=== PATIENT | female | born 1975 | race Caucasian/White ===

== ENCOUNTER → 2017-06-02 | Outpatient (CLI) | payer OTHER ==
--- NOTE | 2017-06-02 18:37 | MR ---
EXAMINATION TYPE: MR brain wo con DATE OF EXAM: 06/02/2017 COMPARISON: NONE HISTORY: Headache CONTRAST: Performed utilizing 0 mL intravenous MultiHance gadolinium contrast. TECHNIQUE: Multiplanar, multiecho imaging on a 3.0 Annie magnet is performed through the brain. Stud y is performed within 24 hours of arrival to the hospital. The craniovertebral junction is normal. The pituitary is normal. Diffusion-weighted imaging is performed. No abnormal hyperintensity is present to suggest an acute i ntracranial infarct or acute ischemic change. There appear to be approximately 7 punctate hyperintensities within the the right frontal subcortical white matter. Series 501 image 17. The largest of these measures 0.6 x 0.4 cm. Differential diagnosi s could include, but is not limited to migraine headaches. Lyme disease is less likely. Multiple sclerosis could be considered. Vasculitis should be considered. Microvascular ischemic change should be considered. There are normal vascular flow voids present. Cerebellar pontine angles and internal auditory canals appear normal. Optic chiasm is unremarkable. Ventricles and sulci are appropriate for the patient age. IMPRESSIONS: 1. There are some focal punctate hyperintensities within the right frontal lobe white matter which ar e nonspecific. Differential diagnosis should include migraine headaches and microvascular ischemic ch howard among other etiologies.
== END | disposition home or self-care (01) ==
LOC: RADMRIMAIN 14:51
PROVIDERS: ATTEND Nurse Practitioner Acute Care
DX: R90.82 White matter disease, unspecified (principal); R90.89 Other abnormal findings on diagnostic imaging of central nervous system; R51 Headache
CPT/HCPCS: 70551

== ENCOUNTER → 2017-07-18 | Outpatient (CLI) | payer OTHER ==
[2017-07-18 18:09] LABS: Appearance,CSF Clear
[2017-07-21 20:52] LABS: Lyme Specimen Source Not Provided
== END | disposition home or self-care (01) ==
LOC: LABWHC1 15:44
PROVIDERS: ATTEND Nurse Practitioner Acute Care
DX: R90.82 White matter disease, unspecified (principal)
CPT/HCPCS: 36415; 82040; 82042; 82784; 83873; 83916; 84157; 87476; 88108; 89050